=== PATIENT | male | born 1955 | race Caucasian/White ===

== ENCOUNTER → 2016-05-29 | Day surgery (SDC) | payer OTHER ==
[~2016-05-29] MED LIST: ATROPINE SULFATE 1% OPHT SOLN 2 ML BTL ONE; B COTAB3 PO; CALCIUM PO; DEXAMETHASONE SOD PHOS 4 MG/ML VIAL ONE; EPINEPHrine HCL (1:1000) 1 MG/ML VIAL ONE; FLURBIPROFEN 0.03% OPHT SOLN 2.5 ML BTL ONE; HYALURONIDASE/LIDOCAINE/BUPIVACAINE 11 ML SYR TL ONE; LACTATED RINGER'S 1000 ML INJ 1,000 ML ONE; LIDOCAINE HCL 4% PF 5 ML AMP ONE; NEOMYCIN/POLYMYXIN/DEXAMETHASONE OPTH OINT 3.5 GM TUBE ONE; PHENYLEPHRINE HCL 2.5 % OPTH SOLN 15 ML BTL ONE; PROPOFOL 200 MG/20 ML AMP IV ONE; SODIUM CHLORIDE 0.9% INJ 10 ML ONE; TETRACAINE 0.5% OPTH SOLN 4 ML BTL ONE; TROPICAMIDE 1% OPHT SOLN 15 ML BTL ONE; VIT D PO; [UNRECOGNIZED DRUG - OTHER] PO; ceFAZolin INJ 1,000 MG VIAL ONE
--- NOTE | 2016-06-13 10:29 | TN ---
cc: COSME BALDERRAMA MD DATE OF SURGERY 05/29/2016 DATE OF 1955 PREOPERATIVE DIAGNOSIS Previous retinal detachment right eye POSTOPERATIVE DIAGNOSIS Previous retinal detachment right eye PROCEDURE Pars plana vitrectomy, silicone oil removal right eye ANESTHESIA MAC SURGEON Cosme Balderrama MD COMPLICATIONS None PROCEDURE IN DETAIL After informed consent was obtained, the patient brought to the operating room, placed, under brief anesthesia of propofol, prepped and draped in the usual sterile fashion. A wire eyelid speculum was placed in the patient's right eye. 23 gauge vitrectomy cannulas were then placed, one lower temporal, supratemporal and supranasal quadrants 3 mm posterior to the corneal scleral limbus. Infusion cannula was placed lower temporally. The patient had a previous vitrectomy with some of the residual vitreous, at the vitreous space was excised using the vitreous cutter. Posteriorly either the internal limiting membrane or an epiretinal membrane was stained with ICG dye over the surface of the macula. This was then carefully peeled from around the macula hole. Careful indirect ophthalmoscopy with scleral depression was then performed. No peripheral breaks were noted. A complete air-fluid was then performed. The silicone oil gas then used to fill the vitreous cavity. The three vitrectomy cannulas were then removed. Each site was closed with interrupted 7-0 Vicryl suture. Subconjunctival injections of Dexamethasone and Ancef were placed. Atropine drops. Maxitrol ointment and patch and shield were then applied. The patient tolerated the procedure well. There were no complications. He will followup tomorrow [facility]. Cosme Balderrama MD TAB/DJL /8:51 AM /10:28 AM
== END | disposition home or self-care (01) ==
LOC: ESDC 12:19
PROVIDERS: ATTEND Ophthalmology Retina Specialist
DX: H33.001 Unspecified retinal detachment with retinal break, right eye (principal)
CPT/HCPCS: 00145; 67108; J0171; J0690; J1100; J7120